=== PATIENT | female | born 1985 | race Caucasian/White ===

== ENCOUNTER 2017-02-06 22:02 | Emergency (ER) | payer BC ==
[2017-02-06 22:22] VITALS: BP 115/72
[2017-02-06] MEDS ORDERED: Bacitracin Oint 1 GM U/D Packet TOP ONE (22:23)
[2017-02-06] MEDS ORDERED: Lidocaine 1% 30 ML SDV INJECT ONE (22:23)
--- NOTE | 2017-02-13 05:34 | EDM.PDOC ---
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 ED EXAM, SKIN/RASH Exam: See Below Exam Limited By: No Limitations General Appearance: Alert, Mild Distress Ears: Normal External Exam Throat/Mouth: Normal Voice Respiratory/Chest: No Respiratory Distress Cardiovascular: Normal Peripheral Pulses, Regular Rate, Rhythm Neurological: Alert, Oriented, Normal Cognition Psychiatric: Normal Affect, Normal Mood Skin: Warm, Dry, Other (single octaviano fish hook to pad right index finger, no swelling or redness. No active bleeding.) ED SKIN PROCEDURES - Additional/Other Procedure(s) Other (Free Text) Procedure(s): single octaviano fishook to right index finger pad. Area cleansed with betadine, Anesthetized with 1.5cc 1% lidocaine, Hook shank cut, parb directed upward through skin and remaing hook removed, tolerated well bandaide bacitracin dressing. Course - Vital Signs Last Recorded V/S: Last Vital Signs Temp 97.3 F 02/06/17 22:21 Pulse 60 02/06/17 22:21 Resp 18 02/06/17 22:21 BP 115/72 02/06/17 22:21 Pulse Ox 98 02/06/17 22:21 - Orders/Labs/Meds Meds: Medications Discontinued Medications Generic Name Dose Route Start Last Admin Trade Name Manas PRN Reason Stop Dose Admin Bacitracin 1 dose 02/06/17 22:23 02/06/17 23:00 Bacitracin Oint 1 Gm TOP 02/06/17 22:24 1 dose ONETIME ONE Administration Lidocaine HCl 30 ml 02/06/17 22:23 02/06/17 23:01 Xylocaine-Mpf 1% INJECT 02/06/17 22:24 2 ml ONETIME ONE Administration Departure - Departure Time of Disposition: 23:25 Disposition: Home, Self-Care 01 Clinical Impression: Fish hook injury of finger of right hand Qualifiers: Encounter type: initial encounter Qualified Code(s): S69.91XA - Unspecified injury of right wrist, hand and finger(s), initial encounter - Discharge Information Instructions: Puncture Wound, [id number] Referrals: PCP,None [Primary Care Provider] - Forms: ED Department Discharge Additional Instructions: warm soak 4 times daily with antibacterial sopa antibiotic ointment and bandaide dressing tylenol or ibuprofen for discomfort follow up if increased pain swelling or redness.
== END 2017-02-06 23:26 | disposition home or self-care (01) ==
LOC: DL.ED 22:02
DX: S60.450A Superficial foreign body of right index finger, initial encounter (principal); W45.8XXA Other foreign body or object entering through skin, initial encounter
CPT/HCPCS: 99282